=== PATIENT | female | born 1940 | race Caucasian/White ===

== ENCOUNTER 2020-09-17 20:34 | Emergency (ER) | payer MEDICARE, OTHER ==
[~2020-09-17] VITALS: Ht 170.2 cm; Wt 79.5 kg
[2020-09-17 21:05] LABS: BASOPHILS # (AUTO) 0.1 X10'3 (0-0.2); BASOPHILS % (AUTO) 1.2 % (0-1); LYMPHOCYTES # (AUTO) 2.4 X10'3 (1.1-4.8); MEAN CORPUSCULAR HEMOGLOBIN 29.8 PG (27.0-31.0); MEAN PLATELET VOLUME 9.3 FL (7.4-10.4); MONOCYTES # (AUTO) 2.1 X10'3 (0-0.9); WHITE BLOOD COUNT 11.7 X10'3 (4.5-11.0)
[2020-09-17 21:06] LABS: EOSINOPHILS % (AUTO) 0.4 % (0-6); HEMATOCRIT 39.8 % (35.0-45.0); HEMOGLOBIN 13.7 g/dl (12.0-16.0); LYMPHOCYTES % (AUTO) 20.7 % (21-51); MEAN CORPUSCULAR HGB CONC 34.3 g/dL (33.0-36.5); MONOCYTES % (AUTO) 18.4 % (2-12); NEUTROPHILS # (AUTO) 6.9 X10'3 (1.8-7.7); NEUTROPHILS % (AUTO) 59.3 % (42-75); PLATELET COUNT 836 X10'3 (140-440); RED BLOOD COUNT 4.58 X10'6 (4.20-5.60); RED CELL DISTRIBUTION WIDTH 14.2 % (11.5-14.5)
[2020-09-17 21:20] LABS: ALANINE AMINOTRANSFERASE 32 U/L (12-78); ALBUMIN 4.2 G/DL (3.4-5.0); ALBUMIN/GLOBULIN RATIO 1.3 (1.1-1.5); ALKALINE PHOSPHATASE 53 IU/L (46-116); ANION GAP 11 (8-16); ASPARTATE AMINO TRANSFERASE 25 U/L (10-37); BILIRUBIN,TOTAL 0.4 MG/DL (0.1-1.0); BLOOD UREA NITROGEN 22 MG/DL (7-18); BUN/CREATININE RATIO 15.1 (6.6-38.0); CALCIUM 8.8 MG/DL (8.5-10.1); CHLORIDE 98 MMOL/L (99-107); CREATININE 1.46 MG/DL (0.40-0.90); GLUCOSE 108 MG/DL (70-104); POTASSIUM 3.5 MMOL/L (3.5-5.1); SODIUM 138 MMOL/L (135-145); TOTAL CARBON DIOXIDE 29.3 MMOL/L (24-32); TOTAL PROTEIN 7.4 G/DL (6.4-8.2); eGFR 34 ML/MIN
[2020-09-17 22:37] VITALS: BP 138/75
[2020-09-17 23:16] LABS: ANISOCYTOSIS FEW; LARGE PLATELETS MODERATE; PLATELET ESTIMATE INCREASED; TOTAL CELLS COUNTED 100
[2020-09-17 23:17] LABS: GIANT PLATELET FEW
== END 2020-09-17 23:22 | disposition home or self-care (01) ==
LOC: ER 20:34
DX: R07.89 Other chest pain (principal); K21.9 Gastro-esophageal reflux disease without esophagitis; I10 Essential (primary) hypertension; E78.00 Pure hypercholesterolemia, unspecified; Z88.0 Allergy status to penicillin
CPT/HCPCS: 36415; 71045; 80053; 83880; 84484; 85007; 85025; 93005; 99285

== ENCOUNTER 2021-07-14 17:31 | Inpatient (IN) | payer MEDICARE, OTHER ==
[~2021-07-14] VITALS: Ht 170.2 cm; Wt 81.8 kg
[2021-07-14 18:18] LABS: BASOPHILS # (AUTO) 0.1 X10'3 (0-0.2); BASOPHILS % (AUTO) 0.8 % (0-1); EOSINOPHILS % (AUTO) 0.2 % (0-6); HEMOGLOBIN 12.8 g/dl (12.0-16.0); MEAN PLATELET VOLUME 11.6 FL (7.4-10.4); NEUTROPHILS # (AUTO) 11.6 X10'3 (1.8-7.7); PLATELET COUNT 315 X10'3 (140-440)
[2021-07-14 18:20] LABS: HEMATOCRIT 38.2 % (35.0-45.0); LYMPHOCYTES # (AUTO) 3.4 X10'3 (1.1-4.8); LYMPHOCYTES % (AUTO) 18.6 % (21-51); MEAN CORPUSCULAR HEMOGLOBIN 28.8 PG (27.0-31.0); MEAN CORPUSCULAR HGB CONC 33.5 g/dL (33.0-36.5); MEAN CORPUSCULAR VOLUME 85.9 FL (78-98); MONOCYTES # (AUTO) 3.1 X10'3 (0-0.9); MONOCYTES % (AUTO) 17.2 % (2-12); NEUTROPHILS % (AUTO) 63.2 % (42-75); RED BLOOD COUNT 4.45 X10'6 (4.20-5.60); RED CELL DISTRIBUTION WIDTH 13.7 % (11.5-14.5); WHITE BLOOD COUNT 18.3 X10'3 (4.5-11.0)
[2021-07-14] MEDS ORDERED: ANAG0.5C3 PO (18:22)
[2021-07-14] MEDS ORDERED: TRIM100T PO (18:22)
[2021-07-14] MEDS ORDERED: OMEP40CA21 PO (18:22)
[2021-07-14] MEDS ORDERED: TRIA1CAP6 PO ×2 (18:23→20:05)
[2021-07-14 18:40] LABS: ALANINE AMINOTRANSFERASE 23 U/L (12-78); ALBUMIN 3.9 G/DL (3.4-5.0); ALBUMIN/GLOBULIN RATIO 1.2 (1.1-1.5); ALKALINE PHOSPHATASE 38 IU/L (46-116); ANION GAP 11 (8-16); ASPARTATE AMINO TRANSFERASE 16 U/L (10-37); BILIRUBIN,TOTAL 0.5 MG/DL (0.1-1.0); BLOOD UREA NITROGEN 27 MG/DL (7-18); BUN/CREATININE RATIO 23.7 (6.6-38.0); CALCIUM 9.2 MG/DL (8.5-10.1); CHLORIDE 98 MMOL/L (99-107); CREATININE 1.14 MG/DL (0.40-0.90); GLUCOSE 105 MG/DL (70-104); SODIUM 132 MMOL/L (135-145); TOTAL CARBON DIOXIDE 23.5 MMOL/L (24-32); TOTAL PROTEIN 7.1 G/DL (6.4-8.2); eGFR 46 ML/MIN
[2021-07-14 19:12] LABS: PLATELET ESTIMATE NORMAL; TOTAL CELLS COUNTED 100
[2021-07-14 19:13] LABS: ANISOCYTOSIS FEW; GIANT PLATELET FEW; LARGE PLATELETS MODERATE; TEAR DROP CELLS FEW
[2021-07-14] MEDS ORDERED: heparin 10,000 units/1 ML INJ IV ONE ×2 (19:30→19:35)
[2021-07-14] MEDS ORDERED: heparin 10,000 units/1 ML INJ IV PRN (19:30)
[2021-07-14] MEDS ORDERED: nitroGLYCERIN 1gm ointment UD TP ONE (19:30)
[2021-07-14] MEDS ORDERED: heparin 25,000 UNIT/250ml bag 250 ML IV SCH (19:30)
[2021-07-14] MEDS ORDERED: potassium Cl 20 mEq SR tablet PO PRN ×2 (19:55)
[2021-07-14] MEDS ORDERED: magnesium 4gm in 100ml NS 100 ML IV PRN (19:55)
[2021-07-14] MEDS ORDERED: normal saline 1000ml 1,000 ML IV SCH (19:55)
[2021-07-14] MEDS ORDERED: magnesium Cl slow-release 64mg tablet PO PRN (19:55)
[2021-07-14] MEDS ORDERED: acetaminophen 325mg tablet PO PRN (19:55)
[2021-07-14] MEDS ORDERED: potassium CL 10mEq/100ml bag 100 ML IV PRN (19:55)
[2021-07-14] MEDS ORDERED: ondansetron/PF 4mg/2ml inj IV PRN (19:55)
[2021-07-14] MEDS ORDERED: magnesium 2GM in 50ml NS 50 ML IV PRN (19:55)
[2021-07-14] MEDS ORDERED: mag hydrox/Alum hydrox/simeth 30ml oral suspension PO PRN (19:55)
[2021-07-14] MEDS ORDERED: magnesium hydroxide 30ml (MOM) UD suspension PO PRN (19:55)
[2021-07-14] MEDS ORDERED: PERFLUTREN PROTEIN-A MICROSPHR (Optison) 0.22 MG/ML 3ML VIAL IV ONE (19:55)
[2021-07-14] MEDS: K and/or MAG REPLACEMENT MC SCH (20:00)
[2021-07-14] MEDS: docusate sod 100mg capsule PO SCH (20:00)
[2021-07-14] MEDS ORDERED: metoprolol tartrate 50mg tablet PO ONE (20:00)
[2021-07-14 20:01] LABS: APTT 33 SECONDS (22-32)
[2021-07-14] MEDS ORDERED: OMEP-419 PO (20:05)
[2021-07-14 20:10] LABS: MAGNESIUM 1.9 MG/DL (1.5-2.4); POTASSIUM 4.1 MMOL/L (3.5-5.1)
[2021-07-14 20:26] LABS: CHOL/HDL RATIO 4.6 (0.00-4.99); CHOLESTEROL 208 MG/DL (0-200); HDL CHOLESTEROL 45 MG/DL (35-60); LDL CHOLESTEROL 131 MG/DL (50-100); TRIGLYCERIDES 156 MG/DL (20-135)
[2021-07-14 20:52] LABS: HEMOGLOBIN A1C 6.2 % (4.5-6.2)
--- NOTE | 2021-07-14 22:02 | NUR ---
DR AGUILAR IS SPEAKING TO PT OVER THE PHONE.
[2021-07-15] VITALS (9 sets, daily range): BP systolic 96–156; BP diastolic 42–74
[2021-07-15 06:02] LABS: ALANINE AMINOTRANSFERASE 25 U/L (12-78); ALBUMIN 3.5 G/DL (3.4-5.0); ALBUMIN/GLOBULIN RATIO 1.2 (1.1-1.5); ALKALINE PHOSPHATASE 32 IU/L (46-116); ANION GAP 7 (8-16); ASPARTATE AMINO TRANSFERASE 32 U/L (10-37); BILIRUBIN,TOTAL 0.5 MG/DL (0.1-1.0); BLOOD UREA NITROGEN 20 MG/DL (7-18); BUN/CREATININE RATIO 20.6 (6.6-38.0); CALCIUM 8.8 MG/DL (8.5-10.1); CHLORIDE 101 MMOL/L (99-107); CREATININE 0.97 MG/DL (0.40-0.90); GLUCOSE 106 MG/DL (70-104); POTASSIUM 3.9 MMOL/L (3.5-5.1); SODIUM 135 MMOL/L (135-145); TOTAL CARBON DIOXIDE 26.9 MMOL/L (24-32); TOTAL PROTEIN 6.4 G/DL (6.4-8.2); eGFR 55 ML/MIN
[2021-07-15 06:05] LABS: MAGNESIUM 1.9 MG/DL (1.5-2.4)
[2021-07-15 06:21] LABS: EOSINOPHILS # (AUTO) 0.1 X10'3 (0-0.9); EOSINOPHILS % (AUTO) 0.3 % (0-6); HEMOGLOBIN 12.4 g/dl (12.0-16.0); MEAN CORPUSCULAR HEMOGLOBIN 28.8 PG (27.0-31.0); MEAN PLATELET VOLUME 11.5 FL (7.4-10.4); RED CELL DISTRIBUTION WIDTH 13.9 % (11.5-14.5); WHITE BLOOD COUNT 17.9 X10'3 (4.5-11.0)
[2021-07-15 06:22] LABS: BASOPHILS # (AUTO) 0.2 X10'3 (0-0.2); BASOPHILS % (AUTO) 0.9 % (0-1); HEMATOCRIT 37.6 % (35.0-45.0); LYMPHOCYTES # (AUTO) 3.1 X10'3 (1.1-4.8); LYMPHOCYTES % (AUTO) 17.3 % (21-51); MEAN CORPUSCULAR HGB CONC 33.1 g/dL (33.0-36.5); MEAN CORPUSCULAR VOLUME 87.2 FL (78-98); MONOCYTES # (AUTO) 3.3 X10'3 (0-0.9); MONOCYTES % (AUTO) 18.3 % (2-12); NEUTROPHILS # (AUTO) 11.3 X10'3 (1.8-7.7); NEUTROPHILS % (AUTO) 63.2 % (42-75); PLATELET COUNT 288 X10'3 (140-440); RED BLOOD COUNT 4.31 X10'6 (4.20-5.60)
--- NOTE | 2021-07-15 06:38 | NUR ---
PATIENT ASLEEP,IN A HOSPITAL BED,HEPARIN 1000UNITS RUNNING,WE WILL MONITOR.
[2021-07-15] MEDS: metoprolol tartrate 50mg tablet PO SCH ×2 (07:17→20:50)
--- NOTE | 2021-07-15 07:24 | NUR ---
paged Dr. Hercules lopressor held lopressor hr 56,no prn, troponin 2937.
[2021-07-15] MEDS ORDERED: nitroGLYCERIN-Tridil 50MG/D5W 250 ML IV ONE (07:41)
[2021-07-15] MEDS ORDERED: iohexol 350 MG/ML 50ML vial IV ONE (07:41)
[2021-07-15] MEDS ORDERED: verapamil 2.5 mg/ml inj IV ONE (07:41)
[2021-07-15] MEDS ORDERED: LIDOcaine 1% (10mg/ml)w/preservative injection 20ml MDV ONE (07:41)
[2021-07-15] MEDS ORDERED: midazolam 1 mg/ML 2ml injection ONE (07:41)
[2021-07-15] MEDS ORDERED: fentaNYL/PF 50MCG/1 ML 2ML syringe ONE (07:41)
[2021-07-15] MEDS ORDERED: iohexol 350MG/ML 100ml bottle IV ONE ×2 (07:41→08:43)
[2021-07-15] MEDS ORDERED: heparin 1,000unit/ml 10ml vial 10 ML ONE (07:41)
[2021-07-15] MEDS: docusate sod 100mg capsule PO SCH ×2 (08:00→20:49)
[2021-07-15] MEDS: K and/or MAG REPLACEMENT MC SCH ×2 (08:00→20:00)
--- NOTE | 2021-07-15 08:00 | NUR ---
patient to cathlab.
--- NOTE | 2021-07-15 08:15 | NUR ---
Attempted to call report to [id number] Cee GOMEZ- doing med pass.
[2021-07-15 08:34] LABS: TOTAL CELLS COUNTED 100
[2021-07-15 08:35] LABS: GIANT PLATELET FEW; LARGE PLATELETS MODERATE; PLATELET ESTIMATE NORMAL
[2021-07-15 08:36] LABS: ANISOCYTOSIS 1+
[2021-07-15] MEDS ORDERED: ticagrelor 90mg tablet ONE (09:20)
[2021-07-15] MEDS: normal saline 1000ml 1,000 ML IV SCH ×3 (10:05→23:25)
--- NOTE | 2021-07-15 12:29 | NUR ---
Paged Dr. Hercules regarding if patient can eat. PAGER ID: [phone] MESSAGE: [phone], [place]. Can patient eat? Cee [facility] [id number].
--- NOTE | 2021-07-15 18:28 | NUR ---
Problems reprioritized. Patient report given, questions answered & plan of care reviewed with Romelia GOMEZ, pt is stable at transfer of care.
--- NOTE | 2021-07-15 18:29 | NUR ---
Patient in room PCU 3014. I have received report from PATRICIA Mike and had the opportunity to ask questions and assume patient care.
[2021-07-15] MEDS: carVEDilol 3.125mg tablet PO SCH (20:48)
[2021-07-16 02:00] VITALS: BP 134/50
--- NOTE | 2021-07-16 06:05 | NUR ---
Problems reprioritized. Patient report given, questions answered & plan of care reviewed with PATRICIA Mike.
--- NOTE | 2021-07-16 06:10 | NUR ---
Patient in room PCU 3014. I have received report from Romelia GOMEZ and had the opportunity to ask questions and assume patient care.
[2021-07-16 07:15] LABS: BASOPHILS % (AUTO) 0.2 % (0-1); EOSINOPHILS % (AUTO) 0.2 % (0-6); MONOCYTES # (AUTO) 3.9 X10'3 (0-0.9)
[2021-07-16 07:18] LABS: HEMATOCRIT 36.9 % (35.0-45.0); LYMPHOCYTES # (AUTO) 2.5 X10'3 (1.1-4.8); LYMPHOCYTES % (AUTO) 12.3 % (21-51); MEAN CORPUSCULAR HEMOGLOBIN 29.2 PG (27.0-31.0); MEAN CORPUSCULAR HGB CONC 32.6 g/dL (33.0-36.5); MEAN CORPUSCULAR VOLUME 89.6 FL (78-98); MEAN PLATELET VOLUME 11.8 FL (7.4-10.4); MONOCYTES % (AUTO) 19.3 % (2-12); NEUTROPHILS # (AUTO) 13.6 X10'3 (1.8-7.7); PLATELET COUNT 295 X10'3 (140-440); RED BLOOD COUNT 4.12 X10'6 (4.20-5.60); RED CELL DISTRIBUTION WIDTH 14.2 % (11.5-14.5)
[2021-07-16 07:37] LABS: ALANINE AMINOTRANSFERASE 23 U/L (12-78); ALBUMIN 3.7 G/DL (3.4-5.0); ALBUMIN/GLOBULIN RATIO 1.5 (1.1-1.5); ALKALINE PHOSPHATASE 37 IU/L (46-116); ANION GAP 12 (8-16); ASPARTATE AMINO TRANSFERASE 32 U/L (10-37); BILIRUBIN,TOTAL 0.5 MG/DL (0.1-1.0); BLOOD UREA NITROGEN 15 MG/DL (7-18); CALCIUM 8.3 MG/DL (8.5-10.1); CHLORIDE 100 MMOL/L (99-107); CREATININE 0.79 MG/DL (0.40-0.90); GLUCOSE 98 MG/DL (70-104); MAGNESIUM 1.9 MG/DL (1.5-2.4); POTASSIUM 4.5 MMOL/L (3.5-5.1); SODIUM 134 MMOL/L (135-145); TOTAL CARBON DIOXIDE 21.6 MMOL/L (24-32); TOTAL PROTEIN 6.2 G/DL (6.4-8.2); eGFR 70 ML/MIN
[2021-07-16 07:58] LABS: GIANT PLATELET FEW; LARGE PLATELETS FEW; PLATELET ESTIMATE NORMAL; TOTAL CELLS COUNTED 100
[2021-07-16] MEDS ORDERED: aspirin 325mg tablet PO SCH (09:00)
[2021-07-16] MEDS ORDERED: ticagrelor 90mg tablet PO SCH (09:00)
[2021-07-16] MEDS: carVEDilol 3.125mg tablet PO SCH (09:28)
[2021-07-16] MEDS: docusate sod 100mg capsule PO SCH (09:28)
[2021-07-16] MEDS ORDERED: TICA90TA PO (10:20)
[2021-07-16] MEDS ORDERED: PRAV20TA4 PO (10:20)
[2021-07-16] MEDS ORDERED: COR3.125T PO (10:20)
[2021-07-16] MEDS ORDERED: ASPI-611 PO (10:20)
--- NOTE | 2021-07-16 11:54 | NUR ---
Pt stable for discharge per Dr. Westbrook orders. All discharge instructions reviewed with patient and all questions answered. Belongings collected and sent with patient. PIV discontinued, cannula intact. Tele discontinued. Wheeled to lobby via nursing staff and patient picked up by family member.
== END 2021-07-16 11:27 | disposition home or self-care (01) | DRG 246 ==
LOC: ER 17:32 → ED HOLD 19:57 → EDBEDREQ 07-15 08:11 → PCU 3S 07-15 09:40
PROVIDERS: ADMIT Internal Medicine; ATTEND Internal Medicine
PROC: 4A023N7 Measurement of Cardiac Sampling and Pressure, Left Heart, Percutaneous Approach (ICD-10-PCS; principal; 2021-07-15)
PROC: 027034Z Dilation of Coronary Artery, One Artery with Drug-eluting Intraluminal Device, Percutaneous Approach (ICD-10-PCS; 2021-07-15)
PROC: 02703ZZ Dilation of Coronary Artery, One Artery, Percutaneous Approach (ICD-10-PCS; 2021-07-15)
PROC: B2111ZZ Fluoroscopy of Multiple Coronary Arteries using Low Osmolar Contrast (ICD-10-PCS; 2021-07-15)
PROC: B2151ZZ Fluoroscopy of Left Heart using Low Osmolar Contrast (ICD-10-PCS; 2021-07-15)
DX: I21.4 Non-ST elevation (NSTEMI) myocardial infarction (principal); N17.0 Acute kidney failure with tubular necrosis; C90.00 Multiple myeloma not having achieved remission; E87.1 Hypo-osmolality and hyponatremia; Z20.822 Contact with and (suspected) exposure to COVID-19; M10.9 Gout, unspecified; E78.5 Hyperlipidemia, unspecified; K21.9 Gastro-esophageal reflux disease without esophagitis; I10 Essential (primary) hypertension; I20.0 Unstable angina; Z82.49 Family history of ischemic heart disease and other diseases of the circulatory system; Z87.891 Personal history of nicotine dependence; Z88.0 Allergy status to penicillin; Z79.899 Other long term (current) drug therapy
CPT/HCPCS: 93306; 93458; 99285; C9600; 36415; 71045; 76937; 80053; 80061; 83036; 83735; 83880; 84132; 84484; 85007; 85025; 85347; 85610; 85730; 87081; 87635; 93005; 99152; 99153; A4620; A5120; C1725; C1751; C1769; C1874; C1894; G0378; J1644; J2250; J3010; J3490; J7030; Q9967

== ENCOUNTER 2021-12-05 14:30 | Emergency (ER) | payer MEDICARE, OTHER ==
[~2021-12-05] VITALS: Ht 170.2 cm; Wt 81.8 kg
[~2021-12-05 14:30] MED LIST: ANAG0.5C3 PO; COR3.125T PO; OMEP-419 PO; PRAV20TA4 PO; TICA90TA PO; TRIA1CAP88 PO; TRIM100T PO
[2021-12-05 15:34] LABS: BASOPHILS # (AUTO) 0.1 X10'3 (0-0.2); HEMOGLOBIN 11.7 g/dl (12.0-16.0); MEAN CORPUSCULAR HEMOGLOBIN 27.7 PG (27.0-31.0)
[2021-12-05 15:36] LABS: BASOPHILS % (AUTO) 0.6 % (0-1); EOSINOPHILS % (AUTO) 0.2 % (0-6); HEMATOCRIT 35.2 % (35.0-45.0); LYMPHOCYTES # (AUTO) 2.5 X10'3 (1.1-4.8); LYMPHOCYTES % (AUTO) 11.8 % (21-51); MEAN CORPUSCULAR HGB CONC 33.3 g/dL (33.0-36.5); MEAN CORPUSCULAR VOLUME 83.2 FL (78-98); MEAN PLATELET VOLUME 11.6 FL (7.4-10.4); MONOCYTES # (AUTO) 4.2 X10'3 (0-0.9); MONOCYTES % (AUTO) 19.7 % (2-12); NEUTROPHILS # (AUTO) 14.3 X10'3 (1.8-7.7); NEUTROPHILS % (AUTO) 67.7 % (42-75); PLATELET COUNT 405 X10'3 (140-440); RED BLOOD COUNT 4.24 X10'6 (4.20-5.60); WHITE BLOOD COUNT 21.2 X10'3 (4.5-11.0)
[2021-12-05 15:53] LABS: PLATELET ESTIMATE NORMAL; TOTAL CELLS COUNTED 100
[2021-12-05 15:54] LABS: GIANT PLATELET FEW; LARGE PLATELETS MODERATE
[2021-12-05 15:55] LABS: BURR CELLS 1+
[2021-12-05 15:58] LABS: ALANINE AMINOTRANSFERASE 25 U/L (12-78); ALBUMIN 3.8 G/DL (3.4-5.0); ALBUMIN/GLOBULIN RATIO 1.1 (1.1-1.5); ALKALINE PHOSPHATASE 48 IU/L (46-116); ANION GAP 4 (8-16); ASPARTATE AMINO TRANSFERASE 16 U/L (10-37); BILIRUBIN,TOTAL 0.2 MG/DL (0.1-1.0); BLOOD UREA NITROGEN 18 MG/DL (7-18); CALCIUM 8.9 MG/DL (8.5-10.1); CHLORIDE 97 MMOL/L (99-107); GLUCOSE 109 MG/DL (70-104); POTASSIUM 4.1 MMOL/L (3.5-5.1); SODIUM 129 MMOL/L (135-145); TOTAL CARBON DIOXIDE 27.7 MMOL/L (24-32); TOTAL PROTEIN 7.3 G/DL (6.4-8.2); eGFR 60 ML/MIN
[2021-12-05 16:06] LABS: MAGNESIUM 1.8 MG/DL (1.5-2.4)
[2021-12-05 17:36] LABS: EOSINOPHILS # (AUTO) 0.1 X10'3 (0-0.9); HEMATOCRIT 33.2 % (35.0-45.0); HEMOGLOBIN 11.2 g/dl (12.0-16.0); MEAN CORPUSCULAR HGB CONC 33.6 g/dL (33.0-36.5)
[2021-12-05 17:38] LABS: BASOPHILS # (AUTO) 0.1 X10'3 (0-0.2); BASOPHILS % (AUTO) 0.4 % (0-1); EOSINOPHILS % (AUTO) 0.5 % (0-6); LYMPHOCYTES # (AUTO) 2.8 X10'3 (1.1-4.8); LYMPHOCYTES % (AUTO) 13.4 % (21-51); MEAN CORPUSCULAR HEMOGLOBIN 27.8 PG (27.0-31.0); MEAN CORPUSCULAR VOLUME 82.9 FL (78-98); MEAN PLATELET VOLUME 11.5 FL (7.4-10.4); MONOCYTES # (AUTO) 4.1 X10'3 (0-0.9); MONOCYTES % (AUTO) 19.8 % (2-12); NEUTROPHILS # (AUTO) 13.7 X10'3 (1.8-7.7); NEUTROPHILS % (AUTO) 65.9 % (42-75); PLATELET COUNT 373 X10'3 (140-440); RED BLOOD COUNT 4.01 X10'6 (4.20-5.60); RED CELL DISTRIBUTION WIDTH 14.2 % (11.5-14.5); WHITE BLOOD COUNT 20.8 X10'3 (4.5-11.0)
[2021-12-05] MEDS ORDERED: NITR0.4T48 SL ×2 (18:19)
[2021-12-05 18:38] VITALS: BP 142/64
[2021-12-09] MEDS ORDERED: ANAG1CAP3 PO (17:23)
[2021-12-09] MEDS ORDERED: CARV-50 PO (17:23)
[2021-12-09] MEDS ORDERED: TICA90TA2 PO (17:24)
[2021-12-09] MEDS ORDERED: PRAV20TA4 PO (17:24)
[2021-12-13] MEDS ORDERED: FURO20TA4 PO (10:22)
[2021-12-13] MEDS ORDERED: ASPI81TA53 PO (10:23)
[2021-12-13] MEDS ORDERED: LOSA25TA41 PO (10:23)
[2021-12-13] MEDS ORDERED: POTA-207 PO (10:27)
== END 2021-12-05 18:43 | disposition home or self-care (01) ==
LOC: ER 14:31
DX: R07.89 Other chest pain (principal); Z20.822 Contact with and (suspected) exposure to COVID-19; I10 Essential (primary) hypertension; K21.9 Gastro-esophageal reflux disease without esophagitis; Z88.0 Allergy status to penicillin; Z87.891 Personal history of nicotine dependence
CPT/HCPCS: 36415; 71045; 80053; 83735; 83880; 84484; 85007; 85025; 87635; 93005; 99285; C9803

== ENCOUNTER 2022-02-16 05:48 | Day surgery (SDC) | payer MEDICARE, OTHER ==
[~2022-02-16] VITALS: Ht 170.2 cm; Wt 79.1 kg
[2022-02-16] VITALS (16 sets, daily range): BP systolic 99–162; BP diastolic 43–97
[~2022-02-16 05:48] MED LIST changes: -ANAG0.5C3 PO; +ANAG1CAP3 PO; +ASPI81TA53 PO; +CARV-50 PO; -COR3.125T PO; +FURO20TA4 PO; +LOSA25TA41 PO; -TICA90TA PO; +TICA90TA2 PO; -TRIA1CAP88 PO
[2022-02-16] MEDS ORDERED: LORazepam 0.5 MG tablet PO PRN (06:30)
[2022-02-16] MEDS ORDERED: normal saline 1,000 ML IV SCH (06:30)
[2022-02-16] MEDS ORDERED: diphenhydrAMINE 25mg capsule PO PRN (06:30)
[2022-02-16] MEDS ORDERED: ISOS30TA84 PO (06:44)
[2022-02-16] MEDS ORDERED: ASPI-1053 PO (06:44)
[2022-02-16 07:25] LABS: APTT 35 SECONDS (22-32)
[2022-02-16] MEDS ORDERED: midazolam 1 mg/ML 2ml injection ONE ×2 (07:27→09:29)
[2022-02-16] MEDS ORDERED: LIDOcaine 1% (10mg/ml) 2ml vial ONE (07:27)
[2022-02-16] MEDS ORDERED: nitroGLYCERIN-Tridil 50MG/D5W 250 ML IV ONE (07:27)
[2022-02-16] MEDS ORDERED: verapamil 2.5 mg/ml inj IV ONE (07:27)
[2022-02-16] MEDS ORDERED: heparin 1,000unit/ml 10ml vial 10 ML ONE (07:27)
[2022-02-16] MEDS ORDERED: fentaNYL/PF 50MCG/1 ML 2ML syringe ONE (07:27)
[2022-02-16] MEDS ORDERED: iohexol 350MG/ML 100ml bottle IV ONE ×2 (07:28→08:58)
[2022-02-16 07:39] LABS: ALBUMIN 4.1 G/DL (3.4-5.0); ANION GAP 8 (8-16); BLOOD UREA NITROGEN 15 MG/DL (7-18); BUN/CREATININE RATIO 15.2 (6.6-38.0); CALCIUM 9.1 MG/DL (8.5-10.1); CHLORIDE 96 MMOL/L (99-107); CREATININE 0.99 MG/DL (0.40-0.90); GLUCOSE 110 MG/DL (70-104); POTASSIUM 3.8 MMOL/L (3.5-5.1); SODIUM 129 MMOL/L (135-145); TOTAL CARBON DIOXIDE 25.5 MMOL/L (24-32); eGFR 54 ML/MIN
[2022-02-16 08:05] LABS: HEMOGLOBIN 11.6 g/dl (12.0-16.0)
[2022-02-16 08:08] LABS: BASOPHILS % (AUTO) 0.3 % (0-1); EOSINOPHILS % (AUTO) 0.3 % (0-6); HEMATOCRIT 34.9 % (35.0-45.0); LYMPHOCYTES # (AUTO) 2.3 X10'3 (1.1-4.8); LYMPHOCYTES % (AUTO) 14.1 % (21-51); MEAN CORPUSCULAR HEMOGLOBIN 27.7 PG (27.0-31.0); MEAN CORPUSCULAR HGB CONC 33.2 g/dL (33.0-36.5); MEAN CORPUSCULAR VOLUME 83.5 FL (78-98); MEAN PLATELET VOLUME 11.7 FL (7.4-10.4); MONOCYTES % (AUTO) 18.8 % (2-12); NEUTROPHILS # (AUTO) 10.7 X10'3 (1.8-7.7); NEUTROPHILS % (AUTO) 66.5 % (42-75); RED BLOOD COUNT 4.18 X10'6 (4.20-5.60); RED CELL DISTRIBUTION WIDTH 14.8 % (11.5-14.5)
[2022-02-16 08:15] LABS: PLATELET COUNT 202 X10'3 (140-440)
[2022-02-16 08:50] LABS: GIANT PLATELET FEW; LARGE PLATELETS MODERATE; PLATELET ESTIMATE NORMAL; TOTAL CELLS COUNTED 100
[2022-02-16] MEDS ORDERED: heparin 25,000 UNIT/250ml bag 250 ML IV ONE (08:58)
[2022-02-16] MEDS ORDERED: diphenhydrAMINE 50 mg/ml inj ONE (09:29)
[2022-02-16] MEDS ORDERED: ticagrelor 90mg tablet ONE (09:45)
[2022-02-16] MEDS ORDERED: ticagrelor 90mg tablet PO SCH (10:20)
[2022-02-16] MEDS ORDERED: normal saline 500ml IV soln 1,000 ML IV SCH (10:25)
--- NOTE | 2022-02-16 10:37 | NUR ---
IV heparin running upon arrival. Contacted MD to verify time to DC heparin.Ordered to DC now
--- NOTE | 2022-02-16 10:52 | NUR ---
Pt up to bathroom, voided. Denies cp, denies sob. Site stable with vascular band in place.
--- NOTE | 2022-02-16 13:06 | NUR ---
Pt resting in bed with eyes closed, even respirations. Pt easy to arouse. Pt denies numbness and tingling in right hand. VS stable as charted. Pt denies cp, denies dizziness. Fluids infusing as ordered. Pt right hand warm to touch. Full ROM with fingers of right hand. Pt right arm propped up on pillow for comfort and elevation.
--- NOTE | 2022-02-16 13:33 | NUR ---
Problems reprioritized. Patient report given, questions answered & plan of care reviewed with Zaria GOMEZ.
== END 2022-02-16 17:00 | disposition home or self-care (01) ==
LOC: SSTAY O 05:48
PROVIDERS: ATTEND Internal Medicine Cardiovascular Disease
DX: I25.10 Atherosclerotic heart disease of native coronary artery without angina pectoris (principal); I10 Essential (primary) hypertension; E78.5 Hyperlipidemia, unspecified; Z95.5 Presence of coronary angioplasty implant and graft; Z79.899 Other long term (current) drug therapy; Z98.890 Other specified postprocedural states; Z79.01 Long term (current) use of anticoagulants; M10.9 Gout, unspecified; Z82.49 Family history of ischemic heart disease and other diseases of the circulatory system; Z80.8 Family history of malignant neoplasm of other organs or systems; Z88.0 Allergy status to penicillin
CPT/HCPCS: 36415; 76937; 80048; 85025; 85347; 85610; 85730; 93005; 93458; 99152; 99153; C1725; C1751; C1769; C1874; C1894; C9600; J1200; J1644; J2250; J3010; J3490; J7030; Q0163; Q9967; 85007; A4620; A5120; A6258; A6402

== ENCOUNTER 2023-03-26 10:52 | Observation (INO) | payer MEDICARE, OTHER ==
[2023-03-25 11:24] LABS: ALBUMIN 4.1 G/DL (3.4-5.0); ANION GAP 9 (8-16); BLOOD UREA NITROGEN 27 MG/DL (7-18); BUN/CREATININE RATIO 20.1 (10.0-20.0); CALCIUM 9.1 MG/DL (8.5-10.1); CHLORIDE 96 MMOL/L (99-107); CREATININE 1.34 MG/DL (0.40-0.90); GLUCOSE 114 MG/DL (70-104); POTASSIUM 3.8 MMOL/L (3.5-5.1); SODIUM 129 MMOL/L (135-145); TOTAL CARBON DIOXIDE 23.6 MMOL/L (24-32); eGFR 38 ML/MIN
[2023-03-25 11:26] LABS: BASOPHILS # (AUTO) 0.1 X10'3 (0-0.2); EOSINOPHILS # (AUTO) 0.1 X10'3 (0-0.9); EOSINOPHILS % (AUTO) 0.4 % (0-6); MONOCYTES # (AUTO) 3.8 X10'3 (0-0.9); RED CELL DISTRIBUTION WIDTH 16.1 % (11.5-14.5); WHITE BLOOD COUNT 19.9 X10'3 (4.5-11.0)
[2023-03-25 11:28] LABS: BASOPHILS % (AUTO) 0.7 % (0-1); HEMATOCRIT 31.4 % (35.0-45.0); HEMOGLOBIN 10.5 g/dl (12.0-16.0); LYMPHOCYTES # (AUTO) 3.8 X10'3 (1.1-4.8); LYMPHOCYTES % (AUTO) 18.9 % (21-51); MEAN CORPUSCULAR HGB CONC 33.4 g/dL (33.0-36.5); MEAN CORPUSCULAR VOLUME 83.7 FL (78-98); MEAN PLATELET VOLUME 11.5 FL (7.4-10.4); MONOCYTES % (AUTO) 19.2 % (2-12); NEUTROPHILS # (AUTO) 12.1 X10'3 (1.8-7.7); NEUTROPHILS % (AUTO) 60.8 % (42-75); RED BLOOD COUNT 3.75 X10'6 (4.20-5.60)
[2023-03-25 11:29] LABS: APTT 35 SECONDS (22-32); PROTHROMBIN TIME 11.2 SECONDS (9.0-12.0)
[2023-03-25 11:57] LABS: ANISOCYTOSIS 1+; GIANT PLATELET FEW; PLATELET ESTIMATE NORMAL; TOTAL CELLS COUNTED 100
[2023-03-25 11:58] LABS: BURR CELLS 1+; LARGE PLATELETS MODERATE; PLATELET COUNT 229 X10'3 (140-440)
[2023-03-26] VITALS (19 sets, daily range): BP systolic 125–168; BP diastolic 53–95; PULSE 58–66; RESP 11–17; TEMP 97.8–98.4; O2SAT 90–98
[~2023-03-26] VITALS: Ht 175.3 cm; Wt 82.5 kg
[~2023-03-26 10:52] MED LIST changes: +ASPI-1053 PO; -ASPI81TA53 PO; -FURO20TA4 PO; +ISOS30TA84 PO; -LOSA25TA41 PO
[2023-03-26] MEDS ORDERED: METH1TAB32 PO (11:19)
[2023-03-26] MEDS ORDERED: CARV25TA2 PO (11:19)
[2023-03-26] MEDS ORDERED: TRIA1CAP88 PO (11:20)
[2023-03-26] MEDS ORDERED: normal saline 1,000 ML IV SCH (11:25)
[2023-03-26] MEDS ORDERED: diphenhydrAMINE 25mg capsule PO PRN (11:25)
[2023-03-26] MEDS ORDERED: LORazepam 0.5 MG tablet PO PRN (11:25)
[2023-03-26] MEDS ORDERED: acetylcysteine 200 MG/ml 4ml vial PO PRN (11:27)
[2023-03-26] MEDS ORDERED: sodium bicarbonate 1meq/ml syr 150 ML in dextrose 5%-water 1,000 ML IV SCH (11:30)
[2023-03-26] MEDS: sodium bicarbonate 1meq/ml syr 150 ML in dextrose 5%-water 1,000 ML IV SCH ×2 (12:34→17:48)
[2023-03-26] MEDS ORDERED: LIDOcaine 1% 30ml preserv. free vial ONE (12:42)
[2023-03-26] MEDS ORDERED: midazolam 1 mg/ML 2ml injection ONE (12:42)
[2023-03-26] MEDS ORDERED: verapamil 2.5 mg/ml inj IV ONE (12:42)
[2023-03-26] MEDS ORDERED: LIDOcaine 1% (10mg/ml) 2ml vial ONE (12:42)
[2023-03-26] MEDS ORDERED: fentaNYL/PF 50MCG/1 ML 2ML syringe ONE (12:42)
[2023-03-26] MEDS ORDERED: heparin 1,000unit/ml 10ml vial 10 ML ONE (12:43)
[2023-03-26] MEDS ORDERED: nitroGLYCERIN 500mcg/5mL D5W 10 ML IV ONE (12:43)
[2023-03-26] MEDS ORDERED: heparin 25,000 UNIT/250ml bag 250 ML IV ONE (12:43)
[2023-03-26] MEDS ORDERED: iohexol 350MG/ML 100ml bottle IV ONE ×2 (12:43→15:16)
[2023-03-26] MEDS ORDERED: iohexol 350 MG/ML 50ML vial IV ONE (15:03)
[2023-03-26] MEDS ORDERED: hydrALAZINE 20mg/ml inj. IV ONE (15:17)
[2023-03-26] MEDS ORDERED: ticagrelor 90mg tablet ONE (15:55)
[2023-03-26] MEDS ORDERED: cyclobenzaprine 10mg tablet PO PRN (17:50)
[2023-03-26] MEDS ORDERED: ticagrelor 90mg tablet PO SCH (20:00)
[2023-03-26] MEDS ORDERED: carVEDilol 12.5mg tablet PO SCH (21:00)
[2023-03-26] MEDS: triamterene/HCTZ 37.5/25mg tablet PO SCH (21:16)
[2023-03-27] VITALS (7 sets, daily range): BP systolic 101–137; BP diastolic 48–97; PULSE 51–90; RESP 12–17; TEMP 97.8–98; O2SAT 96–97
[2023-03-27 07:31] LABS: BASOPHILS # (AUTO) 0.1 X10'3 (0-0.2); EOSINOPHILS # (AUTO) 0.1 X10'3 (0-0.9); EOSINOPHILS % (AUTO) 0.4 % (0-6); HEMOGLOBIN 10.2 g/dl (12.0-16.0); LYMPHOCYTES # (AUTO) 3.8 X10'3 (1.1-4.8); MONOCYTES # (AUTO) 4.4 X10'3 (0-0.9)
[2023-03-27 07:33] LABS: BASOPHILS % (AUTO) 0.4 % (0-1); HEMATOCRIT 31.2 % (35.0-45.0); LYMPHOCYTES % (AUTO) 18.5 % (21-51); MEAN CORPUSCULAR HEMOGLOBIN 27.6 PG (27.0-31.0); MEAN CORPUSCULAR HGB CONC 32.7 g/dL (33.0-36.5); MEAN CORPUSCULAR VOLUME 84.3 FL (78-98); MONOCYTES % (AUTO) 21.6 % (2-12); NEUTROPHILS # (AUTO) 12.1 X10'3 (1.8-7.7); NEUTROPHILS % (AUTO) 59.1 % (42-75); PLATELET COUNT 256 X10'3 (140-440); RED CELL DISTRIBUTION WIDTH 16.5 % (11.5-14.5); WHITE BLOOD COUNT 20.5 X10'3 (4.5-11.0)
[2023-03-27 07:39] LABS: ALANINE AMINOTRANSFERASE 12 U/L (12-78); ALBUMIN 3.6 G/DL (3.4-5.0); ALBUMIN/GLOBULIN RATIO 1.2 (1.1-1.5); ALKALINE PHOSPHATASE 43 IU/L (46-116); ANION GAP 8 (8-16); ASPARTATE AMINO TRANSFERASE 17 U/L (10-37); BILIRUBIN,TOTAL 0.4 MG/DL (0.1-1.0); BLOOD UREA NITROGEN 21 MG/DL (7-18); BUN/CREATININE RATIO 17.2 (10.0-20.0); CHLORIDE 94 MMOL/L (99-107); CREATININE 1.22 MG/DL (0.40-0.90); GLUCOSE 92 MG/DL (70-104); POTASSIUM 3.8 MMOL/L (3.5-5.1); SODIUM 129 MMOL/L (135-145); TOTAL CARBON DIOXIDE 26.9 MMOL/L (24-32); TOTAL PROTEIN 6.6 G/DL (6.4-8.2); eCRCL 37 ML/MIN; eGFR 42 ML/MIN
[2023-03-27] MEDS: triamterene/HCTZ 37.5/25mg tablet PO SCH (07:56)
[2023-03-27] MEDS ORDERED: methenamine hippurate 1gm tablet PO SCH (08:00)
[2023-03-27] MEDS ORDERED: ticagrelor 90mg tablet PO SCH (08:00)
[2023-03-27] MEDS ORDERED: pantoprazole 40mg Tablet.DR PO SCH (08:00)
[2023-03-27] MEDS ORDERED: atorvastatin 10mg tablet PO SCH (08:00)
[2023-03-27] MEDS ORDERED: aspirin 81mg tab.chew PO SCH (08:00)
[2023-03-27 08:14] LABS: ANISOCYTOSIS 1+; LARGE PLATELETS MODERATE; PLATELET ESTIMATE NORMAL; TOTAL CELLS COUNTED 100
[2023-03-27 08:20] LABS: GIANT PLATELET FEW
[2023-03-27 08:21] LABS: ACANTHOCYTES FEW; BURR CELLS FEW; ELLIPTOCYTES FEW
== END 2023-03-27 11:55 | disposition home or self-care (01) ==
LOC: SSTAY O 10:52 → PCU 3S 19:52
PROVIDERS: ADMIT Internal Medicine Cardiovascular Disease; ATTEND Internal Medicine Cardiovascular Disease
DX: I25.10 Atherosclerotic heart disease of native coronary artery without angina pectoris (principal); I10 Essential (primary) hypertension; E78.5 Hyperlipidemia, unspecified; M10.9 Gout, unspecified; I34.0 Nonrheumatic mitral (valve) insufficiency; R73.03 Prediabetes; Z95.5 Presence of coronary angioplasty implant and graft; Z87.891 Personal history of nicotine dependence; Z88.0 Allergy status to penicillin; Z79.899 Other long term (current) drug therapy
CPT/HCPCS: 36415; 76937; 80048; 80053; 85007; 85025; 85347; 85610; 85730; 92920; 92978; 93005; 93458; 96365; 96366; C1874; G0378; J0360; J1644; J2250; J3010; J3490; J7030; J7040; J7070; Q0163; Q9967; 99152; 99153; A4314; A6258; A6402; A6449; C1725; C1751; C1753; C1761; C1769; C1894

== ENCOUNTER → 2024-09-07 | Outpatient (CLI) | payer MEDICARE, OTHER ==
[~2024-09-07] MED LIST changes: +ANAG1CAP10 PO; -ANAG1CAP3 PO; -CARV-50 PO; +CARV25TA2 PO; -ISOS30TA84 PO; +METH1TAB32 PO; +TRIA1CAP88 PO; -TRIM100T PO
--- NOTE | 2024-09-07 11:59 | RADIOLOGY REPORT ---
INDICATION: PERSONAL HISTORY OF URINARY (TRACT) INFECTIONS TECHNIQUE: Multiple real-time sonographic images of the kidneys and bladder were obtained. COMPARISON: None FINDINGS: The right kidney measures 9.2 cm in length, which is normal in size. There is increased ech ogenicity of the right kidney. Mild hydronephrosis. The left kidney measures 8.6 cm in length, which is normal in size. There is increased echogenicity o f the left kidney. No hydronephrosis. No large intraluminal masses are seen in the bladder. Prior to voiding the bladder volume measures vo lume 562 cc. Following voiding, the bladder volume residual measures 325 cc. IMPRESSION: 1. Echogenic bilateral kidneys suggestive of chronic medical renal disease. No hydronephrosis. 2. Post bladder volume residual 325.
== END | disposition home or self-care (01) ==
LOC: RAD 09:09
PROVIDERS: ATTEND Internal Medicine
DX: N13.30 Unspecified hydronephrosis (principal); N39.0 Urinary tract infection, site not specified; Z87.440 Personal history of urinary (tract) infections
CPT/HCPCS: 76770